=== PATIENT | male | born 1965 | race Caucasian/White ===

== ENCOUNTER 2020-07-09 18:23 | Emergency (ER) | payer MEDICAID ==
[~2020-07-09] VITALS: Ht 154.9 cm; Wt 66.9 kg
[2020-07-09 18:28] VITALS: BP 165/92
--- NOTE | 2020-07-09 18:39 | NUR ---
PT AMB TO BED 3
--- NOTE | 2020-07-09 19:00 | NUR ---
55 YEAR OLD MALE COMPLAINS OF NOT BEING ABLE TO URINATE SINCE 9AM. PT STATES HE HAS ALOT OF PAIN IN SUPRAPUBIC AREA. PT STATES HE HAD BURNING URINATION YESTERDAY. PT DENIES BLOOD IN URINE. PT AOX4, BREATHING EVEN AND UNLABORED, SKIN WARM AND DRY. BED IN LOWEST POSITION, LOCKED, BED RAIL UPX1. PMH - DENIES ALLERGIS - NKA
--- NOTE | 2020-07-09 19:10 | NUR ---
# 16 FR Rm catheter with 10 ml utilizing sterile technique. Immediate return of 600 ml yellow urine noted. Bedside drainage bag placed below level of bladder. Urine sample collected and sent to lab. Pt tolerated procedure well .
--- NOTE | 2020-07-09 19:24 | NUR ---
REPORT GIVEN TO RJ PITTMAN, TRANSFER OF CARE AT THIS TIME
--- NOTE | 2020-07-09 19:37 | NUR ---
OBSERVED 600 ML OF YELLOW URINE IN THE LYNCH BAG AT THIS TIME, PT STATES 0/10 PAIN AT THIS TIME AND NO DISCOMFORT. ERMD MADE AWARE.
--- NOTE | 2020-07-09 20:40 | NUR ---
Shipping Support Clerk accompanied male patient for Rectal Exam administered by AILIN Cormier.
--- NOTE | 2020-07-09 21:10 | NUR ---
Changed andrews catheter to a portable leg bag.
[2020-07-09 21:16] VITALS: BP 132/91
--- NOTE | 2020-07-09 21:16 | NUR ---
Patient discharged with v/s stable. Written and verbal after care instructions given and explained. Patient verbalized understanding. Ambulatory with steady gait. All questions addressed prior to discharge. Advised to follow up with PMD.
== END 2020-07-09 21:16 | disposition home or self-care (01) ==
LOC: MED 18:23
DX: R33.9 Retention of urine, unspecified (principal)
CPT/HCPCS: 51702; 81002; 99284

== ENCOUNTER 2020-07-11 17:42 | Emergency (ER) | payer MEDICAID ==
[~2020-07-11] VITALS: Ht 153.7 cm; Wt 66.2 kg
[2020-07-11 17:53] VITALS: BP 149/97
--- NOTE | 2020-07-11 17:56 | NUR ---
amb to bed 12
--- NOTE | 2020-07-11 18:15 | NUR ---
PATIENT RETURNING TO ER AFTER HAVING CATHETER INSERTED TWO DAYS AGO. REQUESTING TO HAVE IT REMOVED AT THIS TIME, DENIES PAIN OR ANY OTHER MEDICAL COMPLAINTS. BED IN LOWEST POSITION, SIDE RAIL UP X1.
--- NOTE | 2020-07-11 18:28 | NUR ---
CATHETER REMOVED INTACT, PATIENT DENIES PAIN AT THIS TIME. PROVIDED WITH A CUP OF WATER AND URINAL.
--- NOTE | 2020-07-11 19:09 | NUR ---
RECIVED REPORT FROM OLGA PITTMAN. CONTINUATION OF CARE.
== END 2020-07-11 19:23 | disposition home or self-care (01) ==
LOC: MED 17:42
DX: R33.9 Retention of urine, unspecified (principal); R03.0 Elevated blood-pressure reading, without diagnosis of hypertension
CPT/HCPCS: 99281; 99283

== ENCOUNTER 2020-07-11 21:00 | Emergency (ER) | payer MEDICAID | END 2020-07-11 22:34 | disposition home or self-care (01) | LOC: MED 21:00 | DX: R33.9 Retention of urine, unspecified (principal) | CPT/HCPCS: 51702; 99284 ==

== ENCOUNTER 2020-07-25 09:22 | Emergency (ER) | payer MEDICAID ==
[~2020-07-25] VITALS: Ht 154.9 cm; Wt 65.3 kg
--- NOTE | 2020-07-25 09:27 | NUR ---
Pt taken to ER bed 4.
--- NOTE | 2020-07-25 09:34 | NUR ---
Dr. Cheatham at pt bedside for evaluation.
--- NOTE | 2020-07-25 09:36 | NUR ---
55 Y/O MALE PT C/O URINARY RETENTION AND SUPRAPUBIC PAIN SINCE 7AM THIS MORNING. LAST TIME VOID WAS AROUND 6:30 THIS MORNING. PT REMOVED LYNCH CATH IN HIS PCP'S CLINIC YESTERDAY. PMH: BPH MEDS: FINASTERIDE, TAMISULOSIN, CIPRO
--- NOTE | 2020-07-25 09:45 | NUR ---
Dr. Cheatham is reevaluating the patient at bedside.
--- NOTE | 2020-07-25 10:30 | NUR ---
Urinary leg bag attached to patient.
[2020-07-25 10:31] VITALS: BP 117/77
== END 2020-07-25 10:32 | disposition home or self-care (01) ==
LOC: MED 09:22
DX: R33.9 Retention of urine, unspecified (principal); N40.0 Benign prostatic hyperplasia without lower urinary tract symptoms
CPT/HCPCS: 51702; 99284

== ENCOUNTER 2020-11-02 17:33 | Emergency (ER) | payer MEDICAID ==
[~2020-11-02] VITALS: Ht 152.4 cm; Wt 66.0 kg
[2020-11-02 17:40] VITALS: BP 169/113
--- NOTE | 2020-11-02 17:44 | NUR ---
PT AMBULATD TO BED 8.
--- NOTE | 2020-11-02 17:52 | NUR ---
Patient being evaluated by Dr. Ojeda at bedside.
[2020-11-02] MEDS ORDERED: TAMS0.4C96 PO (18:02)
--- NOTE | 2020-11-02 18:20 | NUR ---
55 YEAR OLD FEMALE COMPLAINS OF URINARY RETENTION X TODAY. PT STATES THAT HE HAS URINARY RETENTION AT TIMES. DENIES BLOOD IN URINE, BUT FILLS FULL. PT AOX4, BREATHING EVEN AND UNLABORED, SKIN WARM AND DRY. BED IN LOWEST POSITION, LOCKED, BED RAIL UPX1. PMH - DENIES ALLERGIES - NKA
--- NOTE | 2020-11-02 18:20 | NUR ---
# 16 FR Rm catheter with 10 ml utilizing sterile technique. Immediate return of 600 ml YELLOW CLEAR urine noted. Bedside drainage bag placed below level of bladder. Urine sample collected and sent to lab. Pt tolerated procedure WELL.
--- NOTE | 2020-11-02 19:00 | NUR ---
LEG BAG EMPTIED 400CC ARNOLD COLORED URINE
[2020-11-02 19:40] VITALS: BP 146/84
--- NOTE | 2020-11-02 19:40 | NUR ---
Patient discharged with v/s stable. Written and verbal after care instructions given and explained. Patient alert, oriented and verbalized understanding of instructions. Ambulatory with steady gait. All questions addressed prior to discharge. ID band removed. Patient advised to follow up with PMD. Rx of FLOMAX given. Patient educated on indication of medication including possible reaction and side effects. Opportunity to ask questions provided and answered.
== END 2020-11-02 19:40 | disposition home or self-care (01) ==
LOC: MED 17:33
DX: R33.9 Retention of urine, unspecified (principal); Z79.899 Other long term (current) drug therapy
CPT/HCPCS: 51702; 81002; 99284

== ENCOUNTER 2022-03-02 06:25 | Emergency (ER) | payer MEDICAID, OTHER ==
[~2022-03-02] VITALS: Ht 154.9 cm; Wt 64.9 kg
[~2022-03-02 06:25] MED LIST: TAMS0.4C96 PO
[2022-03-02 06:35] VITALS: BP 162/109
--- NOTE | 2022-03-02 06:41 | NUR ---
PT TAKEN TO ER BED 12
--- NOTE | 2022-03-02 06:45 | NUR ---
Dr. Ojeda examining patient.
[2022-03-02] MEDS ORDERED: IBUP-2213 PO (06:52)
--- NOTE | 2022-03-02 07:20 | NUR ---
# 16 FR Rm catheter with 10 ml utilizing sterile technique. Immediate return of 400 ml straw colored clear urine noted. Leg bag placed below level of bladder and securely attached to leg. Urine sample collected and sent to lab. Pt tolerated procedure well.
--- NOTE | 2022-03-02 07:27 | NUR ---
56 y/o male bibs from home, C/O Urinary retention x today. Patient reported, unable to urinate since 0400 AM today. pt has 9/10 supra pubic pain. denies sob, cp, cough, or fever. a/ox4, ambulatory, and unlabored breathing. PMHx : BPH nka
[2022-03-02 07:39] VITALS: BP 146/98
--- NOTE | 2022-03-02 07:41 | NUR ---
Patient discharged with v/s stable. Written and verbal after care instructions given and explained. Patient alert, oriented and verbalized understanding of instructions. Ambulatory with steady gait. All questions addressed prior to discharge. ID band removed. Patient advised to follow up with PMD. Rx of ibuprofen given. Patient educated on indication of medication including possible reaction and side effects. Opportunity to ask questions provided and answered. vss, a/ox4, unlabored breathing, ambulatory, and calm demeanor.
== END 2022-03-02 07:39 | disposition home or self-care (01) ==
LOC: MED 06:25
DX: R33.9 Retention of urine, unspecified (principal); Z79.899 Other long term (current) drug therapy
CPT/HCPCS: 51702; 81002; 99284

== ENCOUNTER 2022-03-21 16:40 | Emergency (ER) | payer OTHER ==
[~2022-03-21] VITALS: Ht 152.4 cm; Wt 62.1 kg
[~2022-03-21 16:40] MED LIST changes: +IBUP-2213 PO
[2022-03-21 16:46] VITALS: BP 118/78
--- NOTE | 2022-03-21 17:07 | NUR ---
DR TRIPATHI AT BEDSIDE EVALUATING PT
--- NOTE | 2022-03-21 17:26 | NUR ---
lab at bedside
[2022-03-21] MEDS ORDERED: SULF-59 PO (18:03)
--- NOTE | 2022-03-21 18:06 | NUR ---
Urine sample obtained, handed to CPT Alissa at bedside.
[2022-03-21 18:11] LABS: APPEARANCE,URINE CLOUDY (CLEAR); BILIRUBIN,URINE NEGATIVE (NEGATIVE); BLOOD, URINE 3+ (NEGATIVE); COLOR,URINE RED (YELLOW); LEUKOCYTE ESTERASE ,URINE 1+ (NEGATIVE); NITRITE, URINE POSITIVE (NEGATIVE); UGLUCOSE NEGATIVE (NEGATIVE)
[2022-03-21 18:19] LABS: OTHER CASTS, URINE None Seen /LPF (None Seen); RBC,URINE 11-20 (MOD) /HPF (0-5)
--- NOTE | 2022-03-21 18:20 | NUR ---
56 y/o male c/o urinary pain and blood in urine that started on Thursday. Denies fever, chills, pain. Reports pain only present after urination. Has 16fr andrews in place, inserted at [facility] on 03/02/22. pmh: BPH
--- NOTE | 2022-03-21 18:31 | NUR ---
# 16 FR Rm catheter with 10 ml utilizing sterile technique. Immediate return of 30 ml yellow urine noted. Bedside drainage bag placed below level of bladder. Urine sample collected and sent to lab. Pt tolerated procedure well.
[2022-03-21 18:54] VITALS: BP 111/86
--- NOTE | 2022-03-21 18:54 | NUR ---
Patient discharged with v/s stable. Written and verbal after care instructions given. Patient alert, oriented and verbalized understanding of instructions. Ambulatory with steady gait. All questions addressed prior to discharge. ID band removed. Patient advised to follow up with PMD. Rx of Bactrim DS given. Opportunity to ask questions provided and answered.
--- NOTE | 2022-03-24 15:14 | NUR ---
LATE ENTRY. RECEIVED POSITIVE URINE CULTURE RESULTS. DISCREPANCY FORMED GIVEN AND SIGNED BY DR JACOBO. TREATMENT APPROPRIATE. FORM PLACED IN BINDER.
== END 2022-03-21 18:54 | disposition home or self-care (01) ==
LOC: MED 16:40
DX: T83.018A Breakdown (mechanical) of other urinary catheter, initial encounter (principal); N39.0 Urinary tract infection, site not specified; Z79.899 Other long term (current) drug therapy
CPT/HCPCS: 51702; 81001; 81002; 87086; 99284